=== PATIENT | female | born 1945 | race African-American/Black ===

== ENCOUNTER → 2016-08-29 | Day surgery (SDC) | payer MEDICARE, OTHER ==
--- NOTE | 2016-08-27 10:36 | Opthalmology H&P ---
Ophthalmology H&P H&P Chief Complaint: decreased vision in left eye HPI Vision Affects Ability to: read, focus/use eyes together, manage personal affairs HPI Narrative blurry visionj Exam Visual Acuity: OD: 20/400 OS: CF Tension: OD: 17 OS: 15 Eye Exam: normal OU: anterior chambers, corneas, external exam, levator function, marginal reflex distance, palpebral fissure-width, findings: fundus exam - CR scar OD, lens - OD: dense cataract OS: dense cataract Assessment/Plan Diagnosis: (1) Cataract Treatment Plan: cataract extraction w/ lens implant Goals of Treatment: improvement of vision, enhance quality of life Attestation Attestation The risks and benefits of the surgery as well as alternative procedures were explained to the patient in detail. DAREN GIBBONS Aug 27, 2016 10:36
--- NOTE | 2016-08-27 15:24 | Pre-Procedure Note/Attestation ---
Pre-Procedure Note/Attestation Complete Prior to Procedure Planned Procedure: left Procedure Narrative: phaco with IOL Indications for Procedure Pre-Operative Diagnosis: cataract Attestation I attest that I discussed the nature of the procedure; its benefits; risks and complications; and alternatives (and the risks and benefits of such alternatives ), prior to the procedure, with the patient (or the patient's legal patient portal representative). I attest that, if there was a reasonable possibility of needing a blood transfusion, the patient (or the patient's legal patient portal representative) was given the [facility] standardized written summary, pursuant to the [place] Blood Safety Act ([place] Health and Safety Code # 1645, as amended). I attest that I re-evaluated the patient just prior to the surgery and that there has been no change in the patient's H&P, except as documented below: DAREN GIBBONS Aug 27, 2016 15:24
[2016-08-29] VITALS (7 sets, daily range): BP systolic 142–165; BP diastolic 74–103
[~2016-08-29] VITALS: Ht 162.6 cm; Wt 64.0 kg
[~2016-08-29] MED LIST: ALBUTEROL2.5 MG/3 M INH; Akten 3.5% 1ml Btl LEFT EYE ONE; BSS 15ml BTL ONE; BSS 500ml btl ONE; COLACE100 MG ORAL; CYMBALTA30 MG ORAL; Carbachol 0.01% Op Soln 1.5ml vial ONE; Cyclopentolate 1% Opth Sol LEFT EYE SCH; DEXAMETHASONE4 M1 PO; DUONEB 0.5-3(2.53 ML HHN; Dexamethasone 4mg/ml vial ONE; Diclofenac Sod 0.1% Op Soln LEFT EYE SCH; EPINEPHrine 1mg/1ml Amp ONE; GABAPENTIN300 MG ORAL; IPRATROPIU0.2 MG/1 M HHN; LEVAQUIN500 MG ORAL; LR 1000ml 1,000 ML IVLG SCH; LR 1000ml ONE; MEDROL DOSEPAK4 MG ORAL; METOCLOPRAMIDE H5 M1 ORAL; MONTELUKAST SOD10 MG ORAL; MS CONTIN30 MG ORAL; Maxitrol Opth Oint 3.5gm ONE; NORCO 10-325 T1 EACH ORAL; NS Irrig 1000ml ONE; Norco 5mg/325mg tab ORAL PRN; PANTOPRAZOLE SO40 MG ORAL; PROAIR HFA8.5 GM INH; Phenylephrine 2.5% Op Soln LEFT EYE SCH; Povidone-Iodine 5% opth solution ONE; Pred Forte 1% Opth Susp 1ml ONE; Sodium Hyaluronate 14 mg/ml 0.85ml ONE; Sterile Water Irrig 1000ml IRRIG ONE; Tetracaine 0.5% Opth Soln ONE; Tropicamide 1% Opth Soln LEFT EYE SCH; acetaZOLAMIDE 500mg Inj ONE; fentaNYL 100 mcg/2 mL IV ONE
--- NOTE | 2016-08-29 11:43 | Immediate Post-Op Evaluation ---
Immediate Post-Op Evalulation Immediate Post-Op Evalulation Procedure: cataract extract with IOL OS Date of Evaluation: Aug 29, 2016 Time of Evaluation: 11:55 IV Fluids: 300 ml Blood Products: 0 Estimated Blood Loss: 0 Urinary Output: nm Blood Pressure Systolic: 153 Blood Pressure Diastolic: 103 Pulse Rate: 71 Respiratory Rate: 18 O2 Sat by Pulse Oximetry: 100 Temperature (Fahrenheit): 99.7 Pain Score (1-10): 5 Nausea: No Vomiting: No Patient Status: awake, reacts, patent, none Hydration Status: adequate - none Drug: none CHRIS GEE M.D. Aug 29, 2016 11:42
--- NOTE | 2016-08-29 12:00 | 48 Hour Post Anesthesia Eval ---
Post Anesthesia Evaluation Procedure: cataract extract with IOL OS Date of Evaluation: Aug 29, 2016 Time of Evaluation: 12:23 Blood Pressure Systolic: 156 0: 94 Pulse Rate: 70 Respiratory Rate: 18 Temperature (Fahrenheit): 97.1 Airway: patent Nausea: No Vomiting: No Pain Intensity: 5 Hydration Status: adequate Cardiopulmonary Status: stable Follow-up Care/Observations: per Dr. Hilton protocol CHRIS GEE M.D. Aug 29, 2016 12:00
--- NOTE | 2016-08-29 12:05 | Anethesia Preoperative Eval ---
Anesthesia Pre-op PMH/ROS General Date of Evaluation: Aug 29, 2016 Time of Evaluation: 10:50 Anesthesiologist: Darleen Mallampati Score Class I : Soft palate, uvula, fauces, pillars visible Class II: Soft palate, uvula, fauces visible Class III: Soft palate, base of uvula visible Class IV: Only hard plate visible Mallampati Classification: Class II Surgeon: Lida Diagnosis: Cataract OS Surgical Procedure: Cataract extract w IOL OS Family History: no anesthesia problems Allergies: Coded Allergies: NO KNOWN ALLERGIES (Unverified Allergy, Unknown, 08/09/15) Past Medical History Pulmonary: Reports: COPD, asthma, other Gastrointestinal/Genitourinary: Reports: GERD PMH Narrative: Hx lung ca s/p chemo and RadTx. Now also with painful renal mass and severe pain. Anesthesia Pre-op Phys. Exam Physician Exam Last Vital Signs Date Time Temp Pulse Resp B/P Pulse Ox O2 Delivery O2 Flow Rate FiO2 08/29/16 09:14 98.7 76 18 143/79 97 Room Air Constitutional: other Cardiovascular: RRR Respiratory: other - expiratory wheezes Gastrointestinal: other - deferred Airway Exam Mallampati Score: Class II MO: limited Teeth: broken MOPAM-CHRIS VANESSA M.D. Aug 29, 2016 12:05
--- NOTE | 2016-08-30 08:55 | Brief Operative Note ---
Immediate Post Operative Note Operative Note Chief Complaint: blurry vision Pre-op Diagnosis: cataract Procedure: phaco with IOL Post-op Diagnosis: Pseudophakia Post-op Diagnosis: same as pre-op Findings: consistent w/pre-op dx studies Surgeon: Lida Anesthesiologist: Darleen Anesthesia: MAC Specimen: none Complications: none Estimated Blood Loss: none Drains: none Implant(s) used?: Yes DAREN GIBBONS Aug 30, 2016 08:55
--- NOTE | 2016-09-01 11:31 | Operative Note - PDOC ---
Operative Note Operative Note Date of Operation/Procedure: Aug 29, 2016 Chief Complaint: blurry vision Pre-op Diagnosis: cataract Procedure: phaco with IOL Post-op Diagnosis: Pseudophakia Post-op Diagnosis: same as pre-op Operative Findings: consistent w/pre-op dx studies Surgeon: Lida Anesthesiologist: Darleen Anesthesia: MAC Specimen: none Complications: none Estimated Blood Loss: none Drains: none Implant(s) used?: Yes Indications for Procedure cataract Description of Procedure This patient has been complaining visually significant cataract in the affected eye with the best corrected visual acuity under moderate glare conditions worse. The patient complains of difficulties with glare in performing activities of daily living and wants to manage personal affairs with comfort and accuracy and see well enough to move with safety at home and outdoors. ~~~ The risks, benefits and alternatives of the procedure were discussed with the patient in the office prior to scheduling surgery. All questions from the patient were answered after the surgical procedure was explained in detail. The risks of the procedure as explained to the patient include, but are not limited to, pain, infection, bleeding, loss of vision, retinal detachment, need for further surgery, loss of lens nucleus, double vision, etc. Alternative procedures were discussed which include, to do nothing or seek a second opinion. Informed consent for this procedure was obtained from the patient. The patient was referred to a primary care physician for a cardiopulmonary clearance prior to surgery, after proper evaluation was done patient was properly scheduled for outpatient surgery. The patient was brought to the operating room where the anesthesiologist established I.V. lines and cardiac monitoring leads. Mild intravenous sedation was administered.~~ The patient was then prepared with a 5% solution of povidone -iodine to the conjunctival fornix and lashes, and a 10% solution of povidone- iodine to the lids and periorbital skin. The patient was then draped in the usual sterile fashion. A lid speculum was then placed in the operative eye. A keratome blade was then used to create a biplanar incision into the anterior chamber. Viscoelastics was then instilled into the anterior chamber. A capsulorrhexis was then fashioned with an utrata forceps. BSS and a cannula were then used to hydrodissect and hydro delineate the lens. Paracentesis incision was made at 3 o'clock with sharp blade. The phacoemulsification unit, after being properly adjusted~ and tested, was then used to emulsify the nucleus and Residual cortical material was aspirated with the irrigation and aspiration unit. Healon was then instilled into the anterior chamber. The corneal wound was then enlarged to the size of the optic with the jason keratome blade. The intraocular lens was then inspected for right~ power and size~ and thought to be satisfactory. Then the lens was gently placed in the capsular bag. Positioning within the capsular bag was confirmed by direct visualization. Viscoelastics~ was removed from the anterior chamber using the irrigation and aspiration unit. The corneal wound was then tested for leaks and none were found. The lid speculum were then removed. Sponge and needle counts were correct. An eye patch and shield were placed over the operative eye. The patient was taken to the recovery room in stable condition. There were no complications. The patient tolerated the procedure well. The patient was then transferred to the ambulatory surgery unit in stable and satisfactory condition , was given detailed written instructions and asked to follow up~ in the office the next day. ~ ~ Dictated & Transcribed: Bozena Nehemias MCGEE JAMES Sep 01, 2016 11:31
== END | disposition home or self-care (01) ==
LOC: SUR 07:23
DX: H26.9 Unspecified cataract (principal); J44.9 Chronic obstructive pulmonary disease, unspecified; J45.909 Unspecified asthma, uncomplicated; C34.12 Malignant neoplasm of upper lobe, left bronchus or lung; Z87.891 Personal history of nicotine dependence; I42.9 Cardiomyopathy, unspecified; K21.9 Gastro-esophageal reflux disease without esophagitis
CPT/HCPCS: 66984; 82962; J0171; J1100; J1120; J3010; J3370; J7120; V2632; 94003; 94150